=== PATIENT | female | born 1990 | race Caucasian/White ===

== ENCOUNTER 2019-01-27 00:18 | Emergency (ER) | payer BC ==
[~2019-01-27] VITALS: Ht 170.2 cm; Wt 91.0 kg
[2019-01-27] MEDS ORDERED: LITHIUM CARBON300 M3 PO (00:28)
[2019-01-27] MEDS ORDERED: SYNTHROID100 MC1 PO (00:31)
[2019-01-27] MEDS ORDERED: HYDROXYZINE HCL10 M1 PO (00:32)
[2019-01-27 01:18] LABS: ABSOLUTE BASOPHILS 0.1 thou/uL (0.0-0.2); ABSOLUTE EOSINOPHILS 0.2 thou/uL (0.0-0.7); ABSOLUTE LYMPHOCYTES 2.7 thou/uL (0.8-5.3); ABSOLUTE MONOCYTES 0.8 thou/uL (0.0-1.2); ABSOLUTE NEUTROPHILS 3.4 thou/uL (1.6-8.1); BASOPHILS 1.1 %; EOSINOPHILS 2.7 %; HEMATOCRIT 39.2 % (37.0-47.0); HEMOGLOBIN 13.1 gm/dL (12.0-15.0); LYMPHOCYTES 37.6 %; MCH 28.1 pg (26.0-34.0); MCHC 33.5 g/dL (28.0-37.0); MCV 83.7 fL (80.0-100.0); MONOCYTES 11.8 %; MPV 7.1 fl. (7.2-11.1); NUCLEATED RBCS 0 /100WBC; PLATELET COUNT* 369 thou/uL (150-400); POLYS 46.8 %; RBC 4.68 mil/uL (4.20-5.00); RDW-CV 14.4 % (10.5-14.5); WBC 7.2 thou/uL (4.0-11.0)
[2019-01-27 01:24] LABS: CREATININE 1.1 mg/dL (0.6-1.3); POTASSIUM 3.7 mmol/L (3.5-5.1)
[2019-01-27 01:28] LABS: ALBUMIN 4.3 g/dL (3.4-5.0); TOTAL BILIRUBIN 0.4 mg/dL (<0.1-1.0); TOTAL PROTEIN 7.9 g/dL (6.4-8.2)
[2019-01-27 02:15] LABS: URINE BILIRUBIN NEGATIVE (Negative); URINE BLOOD NEGATIVE (Negative); URINE CLARITY CLEAR; URINE COLOR YELLOW; URINE GLUCOSE-RANDOM NEGATIVE (Negative); URINE KETONES NEGATIVE (Negative); URINE LEUKOCYTES-REFLEX 1+ (Negative); URINE NITRITE-REFLEX NEGATIVE (Negative); URINE PROTEIN NEGATIVE (Negative); URINE UROBILINOGEN 0.2 E.U./dl (0.2-1.0)
[2019-01-27 02:22] LABS: BACTERIA-REFLEX None Seen /HPF (None Seen); CASTS None Seen /LPF (None Seen); CRYSTALS None Seen /LPF (None Seen); SQUAMOUS >10 Many /LPF (0-3); URINE RBC 0-2 Rare /HPF (0-2); URINE WBC-REFLEX 0-5 Rare /HPF (0-5)
[2019-01-27 02:30] LABS: AMP/METHAMP Negative (Negative); BARBITURATES Negative (Negative); BENZODIAZEPINES Negative (Negative); COCAINE Negative (Negative); METHADONE Negative (Negative); OPIATES Negative (Negative); PCP Negative (Negative); THC Negative (Negative)
[2019-01-27] MEDS ORDERED: BACTRIM DS TAB1 EAC1 PO (03:00)
[2019-01-27 03:10] VITALS: BP 129/90
--- NOTE | 2019-01-27 13:24 | EKG ---
[place] [address] ELECTROCARDIOGRAM REPORT Name: BLUE BARRIOS Room: [facility]#: [id number] Admission: 01/27/19 Attend Phys: Discharge: 01/27/19 Date of : 86 Report #: [id number] THIS REPORT FOR: //name// [facility] ED Test Date: 2019-01-27 Test Time: 00:21:43 Pat Name: BLUE BARRIOS Department: Room: Gender: F Log Handler: RODERICK : 1990 Requested By: Sai Villegas Order Number: [id number] MD: Miguel Tao Measurements Intervals Diamond Rate: 86 P: 54 WA: 162 QRS: 69 QRSD: 86 T: -1 QT: 381 QTc: 456 Interpretive Statements Sinus rhythm Borderline ST elevation, anterior leads Nonspecific T wave abnormality inferior leads Artifact in lead(s) I,II,III,aVR,aVL,aVF No previous ECG available for comparison Electronically Signed On 01-27-2019 13:24:05 CDT by Miguel Tao [email or web address] <ELECTRONICALLY SIGNED> By: Miguel Tao MD, FACC 01/27/19 1324 0021 002 Miguel Tao MD, [facility] /EPI
== END 2019-01-27 03:10 | disposition home or self-care (01) ==
LOC: M.ERS 00:18
PROVIDERS: Emergency Medicine Emergency Medical Services
DX: R55 Syncope and collapse (principal); R42 Dizziness and giddiness; R10.32 Left lower quadrant pain; F31.9 Bipolar disorder, unspecified; K31.84 Gastroparesis; Z88.6 Allergy status to analgesic agent; Z91.018 Allergy to other foods; Z79.899 Other long term (current) drug therapy